=== PATIENT | female | born 1985 | race Caucasian/White ===

== ENCOUNTER 2018-07-12 13:39 | Inpatient (IN) ==
[2018-07-12 14:35] LABS: Basophils # 0.1 K/mcL (0.0-0.2); Basophils % 1.1 %; Eosinophils % 0.2 %; Hematocrit 47.2 % (35.3-44.9); Hemoglobin 15.4 g/dL (11.5-15.4); Immature Granulocytes % 1.7 % (0-4); Lymphocytes # 2.5 K/mcL (0.6-4.6); Lymphocytes % 38.7 %; Mean Corpuscular HGB Conc 32.6 g/dL (31.6-35.5); Mean Corpuscular Volume 85.8 fL (83.0-100.0); Mean Platelet Volume 10.9 fL (9.4-12.4); Monocytes # 0.5 K/mcL (0.0-1.3); Monocytes % 8.2 %; Platelet Count 260 K/mcL (140-400); Red Cell Distribution Width 16.1 % (11.5-14.5); Segmented Neutrophils % 50.1 %
[2018-07-12 14:41] LABS: INR 1.1; Neutrophils # 3.3 K/mcL (1.6-8.9); Prothrombin Time 12.9 Seconds (9.4-12.1)
[2018-07-12] MEDS ORDERED: 0.9 % Sodium Chloride 1,000 ML IVC ONE (14:56)
[2018-07-12 14:57] LABS: Troponin I < 0.03 ng/mL (< 0.04)
[2018-07-12 15:04] LABS: Alanine Aminotransferase > 500 Units/L (7-52); Albumin 3.2 g/dL (3.5-5.7); Albumin/Globulin Ratio 0.9 (1.1-2.2); Alkaline Phosphatase 225 Units/L (34-104); Aspartate Amino Transferase 634 Units/L (13-39); BUN/Creatinine Ratio 11 (6-26); Bilirubin,Direct 3.7 mg/dL (0.0-0.2); Bilirubin,Indirect 1.6 mg/dL (0.0-1.2); Bilirubin,Total 5.3 mg/dL (0.3-1.0); Blood Urea Nitrogen 7 mg/dL (6-20); Calcium 8.6 mg/dL (8.6-10.3); Carbon Dioxide 28 mEq/L (23-29); Chloride 99 mEq/L (98-107); Globulin 3.5 g/dL (2.4-3.5); Glucose 124 mg/dL (70-105); Lipase 32 Units/L (11-82); Osmolality,Calculated 275 (280-300); Potassium 3.3 mEq/L (3.5-5.1); Sodium 133 mEq/L (136-145); Total Protein 6.7 g/dL (6.4-8.9); eGFR For Non-African Americans > 60 (> 60)
[2018-07-12 15:05] LABS: Bilirubin,Urine Large (Negative); Blood,Urine Negative (Negative); Clarity,Urine Cloudy (Clear); Color,Urine Orange (Yellow); Glucose,Urine (UA) Normal (Normal); Ketones,Urine Trace mg/dL (Negative); Leukocyte Esterase,Urine Trace (Negative); Nitrite,Urine Negative (Negative); PH,Urine 5.5 pH Units (5.0-8.0); Protein,Urine Negative (Neg-Trace); Specific Gravity,Urine 1.024 (1.010-1.025); Urobilinogen,Urine Normal (Normal)
[2018-07-12 15:07] LABS: Bacteria,Urine None Seen per hpf (None-Few); Hyaline Casts,Urine None Seen per lpf (None-Few); RBC,Urine 0-3 per hpf (0-3); Squamous Epithelial Cell,Urine Many per lpf (None-Few); WBC,Urine 0-3 per hpf (0-3)
[2018-07-12 15:18] LABS: Platelet Estimate Normal (Normal); Reactive Lymphocytes Present (Not Present)
[2018-07-12 15:19] LABS: Acetaminophen < 10 mcg/mL (10-20)
[2018-07-12 15:26] LABS: Yeast,Urine Few per hpf (None Seen)
--- NOTE | 2018-07-12 17:01 | Emergency Department Note ---
Disposition Clinical Impression: Hepatitis Disposition: Admitted As Inpatient Condition: Good Abdominal Pain HPI - General Chief Complaint: ED Abdominal Pain Stated Complaint: "abd pain" Time Seen by Provider: 07/12/18 13:55 Source: patient Mode of arrival: ambulatory Limitations: no limitations Nursing Notes Reviewed: Yes Vital Signs Reviewed: Yes - History of Present Illness HPI Narrative: Patient presents to the emergency department today for evaluation of right upper quadrant pain and associated jaundice. Patient's symptoms have been going on for proximally 5 days. Patient states increasing amounts of pain as well as associated feeling of the eyes. 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 Mother is at bedside and states that she was last seen approximately a week ago without complaints of abdominal pain or jaundice. The patient states that she does have a history of IV drug use. She does have known contacts that are hepatitis positive. Patient has had mild nausea without significant decrease in appetite. No vomiting. Decreased and dark urination. Pain Scale: 3 - Related Data Home Medications Medication Instructions Recorded Confirmed No Known Home Drugs 07/12/18 07/12/18 Allergies Allergy/AdvReac Type Severity Reaction Status Date / Time No Known Allergies Allergy Verified 07/12/18 15:50 Review of Systems: CONSTITUTIONAL: No weight loss, fever, chills, weakness or fatigue. HEENT: Eyes: No visual changes. Ears, Nose, Throat: No hearing loss, difficulty talking or unable to swallow. SKIN: Jaundice CARDIOVASCULAR: No chest pain, chest pressure or chest discomfort. No palpitations or edema. RESPIRATORY: No shortness of breath, cough or sputum. GASTROINTESTINAL: Abdominal pain with nausea. No vomiting. GENITOURINARY: No burning on urination or hematuria. NEUROLOGICAL: No headache, dizziness, syncope, paralysis, ataxia, numbness or tingling in the extremities. No change in bowel or bladder control. MUSCULOSKELETAL: No muscle pain, back pain, joint pain or stiffness. All systems ED: reviewed and negative except as stated. Review of Systems: As Per HPI Abdominal Pain PMH - Past Medical History Medical history: Reports: no medical history Female Surgical History: Reports: other Psychiatric history: Reports: no psych history - Social History Smoking status: Former smoker Alcohol use: Reports: none Drug use: Reports: methamphetamine, IV Drug Use Physical Exam General: Well appearing, nontoxic, no acute distress Head: Normocephalic Atraumatic Eyes: Scleral jaundice, PERRL, EOMI ENT: Airway patent, no stridor Neck: supple Chest: Lungs clear to auscultation bilateral Cardiac: Regular rhythm Abdomen: soft, moderate right upper quadrant tenderness without Torres sign, nondistended; no guarding, rebound, or tenderness to percussion Musculoskeletal: Calves symmetric, nontender Skin: No rash, normal skin tone Neuro: Alert and Oriented to person, place, and time; No focal deficit - General Limitations: no limitations General appearance: alert, in no apparent distress Course - Reevaluation(s) Reevaluation #1: Elevated liver enzymes as well as bilirubin. Ultrasound shows gallbladder wall thickening with gallstone. Patient has nausea but no vomiting. Torres sign negative. Inflammation likely related to hepatitis. Patient continued to watch. IV drug use with known contacts who have hepatitis. The patient Tylenol level is negative. - Consultations Consultation #1: Discussed with hospitalist. Patient accepted for admission. Vital Signs Temperature 98.0 F 07/12/18 13:46 Pulse Rate 113 07/12/18 13:46 Respiratory Rate 18 07/12/18 13:46 Blood Pressure 121/77 07/12/18 13:46 O2 Sat by Pulse Oximetry 97 07/12/18 13:46 Temperature 98.1 F 07/13/18 21:08 Pulse Rate 97 07/13/18 21:08 Respiratory Rate 16 07/13/18 21:08 Blood Pressure 108/77 07/13/18 21:08 O2 Sat by Pulse Oximetry 97 07/13/18 21:08 Oxygen Delivery Oxygen Delivery Room Air Abdominal Pain - Lab Data Result diagrams: 07/12/18 13:54 07/13/18 04:02 Lab Results 07/12/18 07/12/18 07/12/18 Range/Units 13:54 13:54 13:54 WBC 6.5 (4.3-11.1) K/mcL RBC 5.50 H (3.82-4.97) M/mcL Hgb 15.4 (11.5-15.4) g/dL Hct 47.2 H (35.3-44.9) % MCV 85.8 (83.0-100.0) fL MCH 28.0 (28.0-33.3) pg MCHC 32.6 (31.6-35.5) g/dL RDW 16.1 H (11.5-14.5) % Plt Count 260 (140-400) K/mcL MPV 10.9 (9.4-12.4) fL Immature Gran % 1.7 (0-4) % Seg Neutrophils % 50.1 % Lymphocytes % 38.7 % Monocytes % 8.2 % Eosinophils % 0.2 % Basophils % 1.1 % Neutrophils # 3.3 (1.6-8.9) K/mcL Lymphocytes # 2.5 (0.6-4.6) K/mcL Monocytes # 0.5 (0.0-1.3) K/mcL Eosinophils # 0.0 (0.0-0.6) K/mcL Basophils # 0.1 (0.0-0.2) K/mcL Reactive Lymphocytes Present A (Not Present) Platelet Estimate Normal (Normal) PT 12.9 H (9.4-12.1) Seconds INR 1.1 Sodium 133 L (136-145) mEq/L Potassium 3.3 L (3.5-5.1) mEq/L Chloride 99 (98-107) mEq/L Carbon Dioxide 28 (23-29) mEq/L BUN 7 (6-20) mg/dL Creatinine 0.62 (0.60-1.20) mg/dL Est GFR ( Amer) > 60 (> 60) Est GFR (Non-Af Amer) > 60 (> 60) BUN/Creatinine Ratio 11 (6-26) Glucose 124 H (70-105) mg/dL Calculated Osmolality 275 L (280-300) Lactic Acid (0.5-2.2) mmol/L Calcium 8.6 (8.6-10.3) mg/dL Total Bilirubin 5.3 H (0.3-1.0) mg/dL Direct Bilirubin 3.7 H (0.0-0.2) mg/dL Indirect Bilirubin 1.6 H (0.0-1.2) mg/dL AST 634 H (13-39) Units/L ALT > 500 H (7-52) Units/L Alkaline Phosphatase 225 H (34-104) Units/L Troponin I < 0.03 (< 0.04) ng/mL Serum Total Protein 6.7 (6.4-8.9) g/dL Albumin 3.2 L (3.5-5.7) g/dL Globulin 3.5 (2.4-3.5) g/dL Albumin/Globulin Ratio 0.9 L (1.1-2.2) Lipase 32 (11-82) Units/L Urine Color (Yellow) Urine Clarity (Clear) Urine pH (5.0-8.0) pH Units Ur Specific [place] (1.010-1.025) Urine Protein (Neg-Trace) mg/dL Urine Glucose (UA) (Normal) mg/dL Urine Ketones (Negative) mg/dL Urine Blood (Negative) Urine Nitrite (Negative) Urine Bilirubin (Negative) Urine Urobilinogen (Normal) mg/dL Ur Leukocyte Esterase (Negative) Urine Microscopic RBC (0-3) per hpf Urine Microscopic WBC (0-3) per hpf Ur Squamous Epith Cells (None-Few) per lpf Urine Bacteria (None-Few) per hpf Hyaline Casts (None-Few) per lpf Urine Yeast (None Seen) per hpf Ur Culture Indicated? (NO) Acetaminophen < 10 L (10-20) mcg/mL Hepatitis A IgM Ab (Nonreactive) Hep Bs Antigen (Nonreactive) Hep B Core IgM Ab (Nonreactive) Hepatitis C Ab Screen (Nonreactive) 07/12/18 07/12/18 07/12/18 Range/Units 13:54 14:05 14:55 WBC (4.3-11.1) K/mcL RBC (3.82-4.97) M/mcL Hgb (11.5-15.4) g/dL Hct (35.3-44.9) % MCV (83.0-100.0) fL MCH (28.0-33.3) pg MCHC (31.6-35.5) g/dL RDW (11.5-14.5) % Plt Count (140-400) K/mcL MPV (9.4-12.4) fL Immature Gran % (0-4) % Seg Neutrophils % % Lymphocytes % % Monocytes % % Eosinophils % % Basophils % % Neutrophils # (1.6-8.9) K/mcL Lymphocytes # (0.6-4.6) K/mcL Monocytes # (0.0-1.3) K/mcL Eosinophils # (0.0-0.6) K/mcL Basophils # (0.0-0.2) K/mcL Reactive Lymphocytes (Not Present) Platelet Estimate (Normal) PT (9.4-12.1) Seconds INR Sodium (136-145) mEq/L Potassium (3.5-5.1) mEq/L Chloride (98-107) mEq/L Carbon Dioxide (23-29) mEq/L BUN (6-20) mg/dL Creatinine (0.60-1.20) mg/dL Est GFR ( Amer) (> 60) Est GFR (Non-Af Amer) (> 60) BUN/Creatinine Ratio (6-26) Glucose (70-105) mg/dL Calculated Osmolality (280-300) Lactic Acid 1.7 (0.5-2.2) mmol/L Calcium (8.6-10.3) mg/dL Total Bilirubin (0.3-1.0) mg/dL Direct Bilirubin (0.0-0.2) mg/dL Indirect Bilirubin (0.0-1.2) mg/dL AST (13-39) Units/L ALT (7-52) Units/L Alkaline Phosphatase (34-104) Units/L Troponin I (< 0.04) ng/mL Serum Total Protein (6.4-8.9) g/dL Albumin (3.5-5.7) g/dL Globulin (2.4-3.5) g/dL Albumin/Globulin Ratio (1.1-2.2) Lipase (11-82) Units/L Urine Color [place] A (Yellow) Urine Clarity Cloudy A (Clear) Urine pH 5.5 (5.0-8.0) pH Units Ur Specific [place] 1.024 (1.010-1.025) Urine Protein Negative (Neg-Trace) mg/dL Urine Glucose (UA) Normal (Normal) mg/dL Urine Ketones Trace H (Negative) mg/dL Urine Blood Negative (Negative) Urine Nitrite Negative (Negative) Urine Bilirubin Large H (Negative) Urine Urobilinogen Normal (Normal) mg/dL Ur Leukocyte Esterase Trace H (Negative) Urine Microscopic RBC 0-3 (0-3) per hpf Urine Microscopic WBC 0-3 (0-3) per hpf Ur Squamous Epith Cells Many H (None-Few) per lpf Urine Bacteria None Seen (None-Few) per hpf Hyaline Casts None Seen (None-Few) per lpf Urine Yeast Few H (None Seen) per hpf Ur Culture Indicated? NO. A (NO) Acetaminophen (10-20) mcg/mL Hepatitis A IgM Ab Reactive H (Nonreactive) Hep Bs Antigen Nonreactive (Nonreactive) Hep B Core IgM Ab Grayzone H (Nonreactive) Hepatitis C Ab Screen Reactive H (Nonreactive)
[2018-07-12 17:52] LABS: Hepatitis B Surface Antigen Nonreactive (Nonreactive)
[2018-07-12 18:02] LABS: Hepatitis A Antibody IgM Reactive (Nonreactive)
[2018-07-12 18:03] LABS: Hepatitis B Core IgM Grayzone (Nonreactive); Hepatitis C Virus Antibody Reactive (Nonreactive)
--- NOTE | 2018-07-12 19:31 | Internal Med History&Physical ---
Date of Encounter: 07/12/18 Time of Encounter: 19:19 Internal Medicine - H&P: HPI Chief complaint: abdominal pain and jaundice Admitted From: Home Plans for Post Hospital Care: Home History of present illness: Ms. Choudhury is a 33 year old female with history IV drug, reports smoker <1PPD since 17 years old, substance abuse started in high school with percocets and oxycotin (was on suboxone but states she is no longer on this), reports using meth a month ago. Pt presents with abdominal pain and jaundice. Pt states she initially developd symptoms 07/09/2018. States at she had temp 102 at home and was having some epigastric pain. States her pain felt more like acid reflux and had some back pain as well between her scapula. 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 She states she did vomit. States she does not recall when she last had a BM but her mother told her it was about 9 days ago. States she came in beacuse her mother noted her skin was turning yellow. Reports exposure to a friend that was recently diagnosed with Hep A and her partner of 14 years ( father of her children) has hx of Hep C. Also states she has been with about 10 partners since 17 years of age but denies any knowledge or Hx of STD. In ED BP 98/67 in ED temp 98.0 WBC 6.5, hgb 15.4, hct 47.2, plt 260. Lipase 32 PT 12.9, INR 1.1 Na 133, K 3.3, T bili 5.3, AST 634, ALT > 500, Alk phos 225. Hep A reactive, Hep C reactive, Hep B grayzone. Urine dark with large bilirubin Abdominal US showed US/US abdomen limited IMPRESSION: 1. Cholelithiasis with gallbladder wall thickening is equivocal for acute cholecystitis. No CBD dilatation. 2. Enlarged peripancreatic lymph node measures 2.2 x 1 cm may be reactive. Nonemergent follow-up CT recommended to ensure resolution. Past Med Surg Social Fam HX - Past Medical History Medical history: no medical history Psychiatric history: no psych history - Past Surgical History Additional surgical history: D&C - Social History Smoking Status: Current every day smoker Packs per day: 0.5 Smokeless Tobacco Status: No Alcohol use: none Drug use: methamphetamine, IV Drug Use - Family History Father Living Status: Still Living Hx Family Cardiac Disorders: Yes Hx Family Respiratory Disorders: No Hx Family Cancer: No Hx Family GI Disorders: No Hx Family Medical Disorders: Yes Internal Medicine - H&P: Meds No Known Home Drugs 07/12/18 [History] 3 Allergy/AdvReac Type Severity Reaction Status Date / Time No Known Allergies Allergy Verified 07/12/18 15:50 All Systems PM: A 10-system review of systems was performed and is negative for pertinent findings except as documented above in the HPI. - Constitutional Vitals: Temp Pulse Resp BP Pulse Ox 98.4 F 88 16 100/57 97 07/12/18 19:08 07/12/18 19:08 07/12/18 19:08 07/12/18 19:08 07/12/18 19:08 General appearance: Present: A&O X 3, no acute distress Exam: . - Head Head exam: Present: atraumatic, normocephalic - Eye Eye exam: Present: PERRL, scleral icterus, conjuntiva pink, sclera anicteric Pupils: Present: PERRL - Neck Neck exam general surgery: Present: supple, trachea midline. Absent: lymphadenopathy - Respiratory Respiratory exam: Present: CTAB. Absent: accessory muscle use, rales, rhonchi, wheezes - Cardiovascular Cardiovascular exam: Present: RRR, +S1, +S2. Absent: diastolic murmur, gallop, rubs, systolic murmur - GI/Abdominal GI/Abdominal exam: Present: normal bowel sounds, soft, tenderness, no peritoneal signs. Absent: distended Additional comments: tender RUQ with palpation - Extremities Exam Extremities exam: Present: warm, radial pulses palpable and symmetrical. Absent : calf tenderness, cyanotic, pedal edema - Neurological Exam Neurological exam: Present: CN II-XII intact, oriented X3, no focal deficits. Absent: pronater drift, facial droop, speech deficit - Skin Skin exam: Present: dry, intact Additional comments: jaundice Internal Med - H&P Results - Labs CBC & Chem 7: 07/12/18 13:54 07/12/18 13:54 - Assessment and plan (1) Cholelithiasis and cholecystitis without obstruction Current Visit: Yes Status: Acute Assessment and plan: Pt reports epigastric pain and vomiting. She states her temp at home was 102 but so far has been afebrile. Discussed with surgery and will see in consult. Clear liquid for now but NPO after MN. Will give IVF and prn pain control with tramadol. Qualifiers: Qualified Code(s): K80.10 - Calculus of gallbladder with chronic cholecystitis without obstruction (2) Acute hepatitis A Current Visit: Yes Status: Acute Assessment and plan: Recent sick contact with friend that has Hep A. Condition self limiting so will give supportive care with IVF pain control. (3) Hepatitis C Current Visit: Yes Status: Acute Assessment and plan: New diagnosis to pt, pt was unaware of this. Partner has hx of Hep C and she does admit to hx of IV drug use. Will check other STD work up. Qualifiers: Qualified Code(s): B19.20 - Unspecified viral hepatitis C without hepatic coma (4) Hyperbilirubinemia Current Visit: Yes Status: Acute Assessment and plan: Will monitor CMP daily. Will consult GI to see. (5) Elevated transaminase level Current Visit: Yes Status: Acute (6) IV drug abuse Current Visit: Yes Status: Acute Assessment and plan: Cessation strongly advised. (7) Substance abuse Current Visit: Yes Status: Acute Assessment and plan: Cessation strongly advised (8) Hyponatremia Current Visit: Yes Status: Acute Assessment and plan: Will give IVF and recheck levels in am (9) Hypokalemia Current Visit: Yes Status: Acute Assessment and plan: Will give IVF and recheck levels in am. - Time Spent With Patient Total time spent is greater than 50% in coordination of care (as documented) at patient's floor/unit and/or counseling patient: 25 - 35 minutes
[2018-07-12] MEDS ORDERED: Acetaminophen 325 MG TABLET PO PRN (19:38)
[2018-07-12] MEDS ORDERED: Naloxone 0.4 MG/ML INJ IVP PRN (19:38)
[2018-07-12] MEDS ORDERED: traMADol 50 MG TABLET PO PRN (19:43)
[2018-07-12] MEDS: 0.9 % Sodium Chloride 1,000 ML IVC SCH (20:17)
--- NOTE | 2018-07-12 21:16 | General Surgery Consult Note ---
Date of Encounter: 07/12/18 Time of Encounter: 17:30 Assessment and Plan (1) Hyperbilirubinemia Current Visit: Yes Status: Acute 33F with hyperbilirubinemia and positive hepatitis panel. likely findings are related to acute hepatitis; supportive care pain control GI consult no acute surgery; patient can follow up in two weeks in my clinic if further concern about gallbladder general surgery will sign off; please call with any new questions or concerns History of Present Illness Consult date: 07/12/18 Reason for consult: gallstones History of present illness: 33F h/o of IVDA who presents with 2-3 days of worsening abdominal pain, fatigue , and jaundice. The patient states the pain is localized to the RUQ and midepigastric region No associated nausea or vomiting. In addition she also reports fever of up to 102. After about 2-3 days her mother brought her to the hospital. Her labs were consistent with normal WBC, but hyperbilirubinemia and elevation of AST/ALT. She did have gallstones on US, but her most recent labs demonstrated reactivity in her hepatitis panel. Past Med Surg Social Fam HX - Past Medical History Medical history: no medical history Psychiatric history: no psych history - Past Surgical History Additional surgical history: D&C - Social History Smoking Status: Current every day smoker Packs per day: 0.5 Smokeless Tobacco Status: No Alcohol use: none Drug use: methamphetamine, IV Drug Use - Family History Father Living Status: Still Living Hx Family Cardiac Disorders: Yes Hx Family Respiratory Disorders: No Hx Family Cancer: No Hx Family GI Disorders: No Hx Family Medical Disorders: Yes Medications and Allergies No Known Home Drugs 07/12/18 [History] 3 Allergy/AdvReac Type Severity Reaction Status Date / Time No Known Allergies Allergy Verified 07/12/18 15:50 Review of Systems All systems PM: 12 point ROS negative besides HPI findings. General Surgery Exam Initial Vital Signs Temp Pulse Resp BP Pulse Ox 98.0 F 113 18 121/77 97 07/12/18 13:46 07/12/18 13:46 07/12/18 13:46 07/12/18 13:46 07/12/18 13:46 - General physical appearance no distress - Eyes other (no scleral icterus) - Neck no lymphadectomy - Respiratory normal expansion, normal respiratory effort - Cardiovascular Cardiovascular exam: Present: RRR - Abdomen Abdomen general surgery: Present: soft, tender (mildly tender; (-)gleason's sign) - Integumentary Integumentary general surgery: Present: warm and dry, no abnormal pigmentation ( jaundice) - Neurologic Present: CN 2-12 grossly intact - Musculoskeletal Present: normal posture - Psychiatric Psychiatric general surgery: Present: A&Ox3 Exam Initial Vital Signs Temp Pulse Resp BP Pulse Ox 98.0 F 113 18 121/77 97 07/12/18 13:46 07/12/18 13:46 07/12/18 13:46 07/12/18 13:46 07/12/18 13:46 Results - Labs 07/12/18 13:54 07/12/18 13:54 Abnormal lab results RBC 5.50 M/mcL (3.82-4.97) H 07/12/18 13:54 Hct 47.2 % (35.3-44.9) H 07/12/18 13:54 RDW 16.1 % (11.5-14.5) H 07/12/18 13:54 Reactive Lymphocytes Present (Not Present) A 07/12/18 13:54 PT 12.9 Seconds (9.4-12.1) H 07/12/18 13:54 Sodium 133 mEq/L (136-145) L 07/12/18 13:54 Potassium 3.3 mEq/L (3.5-5.1) L 07/12/18 13:54 Glucose 124 mg/dL (70-105) H 07/12/18 13:54 Calculated Osmolality 275 (280-300) L 07/12/18 13:54 Total Bilirubin 5.3 mg/dL (0.3-1.0) H 07/12/18 13:54 Direct Bilirubin 3.7 mg/dL (0.0-0.2) H 07/12/18 13:54 Indirect Bilirubin 1.6 mg/dL (0.0-1.2) H 07/12/18 13:54 AST 634 Units/L (13-39) H 07/12/18 13:54 ALT > 500 Units/L (7-52) H 07/12/18 13:54 Alkaline Phosphatase 225 Units/L (34-104) H 07/12/18 13:54 Albumin 3.2 g/dL (3.5-5.7) L 07/12/18 13:54 Albumin/Globulin Ratio 0.9 (1.1-2.2) L 07/12/18 13:54 Urine Color [place] (Yellow) A 07/12/18 14:55 Urine Clarity Cloudy (Clear) A 07/12/18 14:55 Urine Ketones Trace mg/dL (Negative) H 07/12/18 14:55 Urine Bilirubin Large (Negative) H 07/12/18 14:55 Ur Leukocyte Esterase Trace (Negative) H 07/12/18 14:55 Ur Squamous Epith Cells Many per lpf (None-Few) H 07/12/18 14:55 Urine Yeast Few per hpf (None Seen) H 07/12/18 14:55 Ur Culture Indicated? NO. (NO) A 07/12/18 14:55 Acetaminophen < 10 mcg/mL (10-20) L 07/12/18 13:54 Hepatitis A IgM Ab Reactive (Nonreactive) H 07/12/18 13:54 Hep B Core IgM Ab Grayzone (Nonreactive) H 07/12/18 13:54 Hepatitis C Ab Screen Reactive (Nonreactive) H 07/12/18 13:54 All other labs normal. - Imaging US - abdomen: report reviewed, image reviewed Consult Discharge Plan - Plan Referrals: NONE,PCP [Primary Care Provider] -
[2018-07-13 05:17] LABS: Alanine Aminotransferase > 500 Units/L (7-52); Albumin 2.8 g/dL (3.5-5.7); Alkaline Phosphatase 190 Units/L (34-104); Aspartate Amino Transferase 376 Units/L (13-39); BUN/Creatinine Ratio 8 (6-26); Bilirubin,Total 5.5 mg/dL (0.3-1.0); Blood Urea Nitrogen 5 mg/dL (6-20); Calcium 8.3 mg/dL (8.6-10.3); Carbon Dioxide 27 mEq/L (23-29); Chloride 104 mEq/L (98-107); Cholesterol 163 mg/dL (< 200); Globulin 2.9 g/dL (2.4-3.5); Glucose 100 mg/dL (70-105); HDL Cholesterol < 3 mg/dL (40-59); Osmolality,Calculated 279 (280-300); Sodium 136 mEq/L (136-145); Total Protein 5.7 g/dL (6.4-8.9); Triglycerides 297 mg/dL (< 150); eGFR For Non-African Americans > 60 (> 60)
[2018-07-13] MEDS: 0.9 % Sodium Chloride 1,000 ML IVC SCH (06:59)
[2018-07-13] MEDS: Nicotine 14 MG PATCH.TD24 TD SCH (11:08)
--- NOTE | 2018-07-13 11:20 | Gastroenterology Consult Note ---
<Murphy Smart Lai - Last Filed: 07/13/18 11:17> Date of Encounter: 07/13/18 Time of Encounter: 10:30 - Assessment and plan (1) Acute hepatitis A Status: Acute Assessment and plan: Continue to monitor hepatic panel daily. - Handwashing (including after using the bathroom, changing diapers, and before preparing or eating foods). - Heating foods appropriately (the virus can be inactivated by heating to >185F for one minute). Cooked foods can transmit HAV if the temperature during food preparation is inadequate to kill the virus or if food is contaminated after cooking. - Chlorine, iodine, and disinfecting solutions (household bleach 1:100 dilution) are effective for inactivation of HAV. (2) Hepatitis B Status: Acute Assessment and plan: Hepatitis B IgM in grayzone, retest in 1 week. Qualifiers: Viral hepatitis chronicity: unspecified Hepatic coma status: without hepatic coma Hepatitis delta agent presence: without delta-agent Qualified Code(s): B19.10 - Unspecified viral hepatitis B without hepatic coma (3) Hepatitis C antibody positive in blood Status: Acute Assessment and plan: Hepatitis C screening positive. Check Hep C quant and genotype to determine if she has active infection. Complete liver work up. Instructed patient to not share any thing that could potentially cause bleeding such as razors, nail clippers, hair clippers. Instructed patient that if they were to cut themselves they need to clean up the blood or if someone else cleans up they need to wear gloves. Instructed patient they need to use protection while having sex. (4) IV drug abuse Status: Acute Assessment and plan: Patient must be drug and alcohol free in order to qualify for treatment for hepa titis C. - Time Spent With Patient Total time spent is greater than 50% in coordination of care (as documented) at patient's floor/unit and/or counseling patient: GI History of Present Illness - Data of Consult Patient: new to practice Consult date: 07/13/18 Requesting Physician: Marco Antonio Calderon MD - Consult Narrative Reason for consult: Hepatitis History of present illness: Ms. Choudhury is a 33 year old female with PMHx of IV drug use (shared needles), intranasal drug use (shared straws), who presented to the hospital with 2-3 days of epigastric abdominal pain and jaundice. She states symptoms started on 07/09/18. She reports a fever at home of 102. Reports exposure to a friend that was recently diagnosed with Hep A and her partner of 14 years (father of her children) has hx of Hep C. Also states she has been with about 10 partners since 17 years of age but denies any knowledge or Hx of STD. RUQ US showed cholelithiasis with cholecystitis, no CBD dilation. On admission, TB 5.3, AST 634, ALT >500, alk phos 225, hepatitis A positive, hep C screening positive, hep B IgM grayzone (need retest in 1 week), HIV antigen/antibody positive. Procedures: None NSAIDs: None Anticoagulation: None Past Med Surg Social Fam HX - Past Medical History Medical history: no medical history Psychiatric history: no psych history - Past Surgical History Additional surgical history: D&C - Social History Smoking Status: Current every day smoker Packs per day: 0.5 Smokeless Tobacco Status: No Alcohol use: none Drug use: methamphetamine, IV Drug Use - Family History Father Living Status: Still Living Hx Family Cardiac Disorders: Yes Hx Family Respiratory Disorders: No Hx Family Cancer: No Hx Family GI Disorders: No Hx Family Medical Disorders: Yes - Gastrointestinal Gastrointestinal: Present: as per HPI - Constitutional Constitutional: as per HPI - EENT Eyes: as per HPI Ears: Present: as per HPI Nose, mouth and throat: Present: as per HPI - Cardiovascular Cardiovascular ROS: Present: as per HPI - Respiratory Respiratory IM: Present: as per HPI - Genitourinary Genitourinary: Absent: change in color, Urinary frequency - Neurological ROS Neurological GI: Present: as per HPI - Hematologic/Lymphatic Hematologic/Lymphatic pediatric: Present: as per HPI - Musculoskeletal Musculoskeletal ROS GI: Present: as per HPI - Integumentary Integumentary GI: Present: as per HPI - Psychiatric ROS Psychiatric GI: Present: as per HPI - Endocrine Endocrine IM: Present: as per HPI - Constitutional Vitals: Temp Pulse Resp BP Pulse Ox 98.5 F 99 17 102/64 97 07/13/18 07:08 07/13/18 07:08 07/13/18 07:08 07/13/18 07:08 07/13/18 07:08 General appearance: Present: cooperative, A&O X 3, no acute distress, answers questions appropriately - Head Head exam: Present: atraumatic, normocephalic - Eye Eye exam: Present: normal appearance, sclera anicteric - ENT ENT exam: Present: mucous membranes dry - Neck Neck exam general surgery: Present: normal inspection, trachea midline - Respiratory Respiratory exam: Present: CTAB. Absent: rales, rhonchi - Cardiovascular Cardiovascular exam: Present: RRR, +S1, +S2 - GI/Abdominal GI/Abdominal exam: Present: soft, tenderness (ruq), no peritoneal signs. Absent: distended, firm, guarding - Rectal Rectal exam: Present: deferred - Extremities Exam Extremities exam: Present: warm - Neurological Exam Neurological exam: Present: no focal deficits - Psychiatric Psychiatric exam: Present: normal affect, normal mood - Skin Skin exam: Present: dry, intact, normal color, warm Results - Labs CBC & Chem 7: 07/12/18 13:54 07/13/18 04:02 Labs: Last Result Calcium 8.3 mg/dL (8.6-10.3) L 07/13/18 04:02 Troponin I < 0.03 ng/mL (< 0.04) 07/12/18 13:54 Triglycerides 297 mg/dL (< 150) H 07/13/18 04:02 Entire Visit Hgb 15.4 g/dL (11.5-15.4) 07/12/18 13:54 Hct 47.2 % (35.3-44.9) H 07/12/18 13:54 PT 12.9 Seconds (9.4-12.1) H 07/12/18 13:54 Total Bilirubin 5.5 mg/dL (0.3-1.0) H 07/13/18 04:02 AST 376 Units/L (13-39) H 07/13/18 04:02 ALT > 500 Units/L (7-52) H 07/13/18 04:02 Ammonia 48 mcmol/L (16-53) 07/12/18 20:16 Lipase 32 Units/L (11-82) 07/12/18 13:54 Acetaminophen < 10 mcg/mL (10-20) L 07/12/18 13:54 - ABG ABG results: PT/INR, D-dimer PT 12.9 Seconds (9.4-12.1) H 07/12/18 13:54 Consult Discharge Plan - Plan Instructions: Ciprofloxacin (By mouth), Metronidazole (By mouth), Nicotine (Absorbed through the skin), Viral Hepatitis A (DC), Viral Hepatitis C (DC), Hum an Immunodeficiency Virus Transmission (GEN) Additional Instructions: Please make appointments with GI/ID/Surgery follow up in one week. Please f/u with resident clinic in one week. Referrals: Sandeep Guzman MD [Non-Partnered Physician] - 07/28/18 2:10 pm Jorge Regalado DO [Resident] - 07/22/18 3:30 pm Murphy Smart, INSTRUCTOR PSYCHIATRIC AIDE [Advanced Practice Nurse] - (office will call patient at home with appointment date and time) Getachew العراقي MD [Partnered Physician] - (sent a web request the office will call patient at home with appointment date and time) Prescriptions: Ciprofloxacin HCl [Cipro] 250 mg PO BID 7 Days #14 tab RX: metroNIDAZOLE [Flagyl] 500 mg PO TID 7 Days #21 tablet RX: Nicotine Patch [Nicoderm] 14 mg TD DAILY 14 Days #14 patch.[email or web address] <Nilesh Chen - Last Filed: 07/25/18 22:13> - Time Spent With Patient Total time spent is greater than 50% in coordination of care (as documented) at patient's floor/unit and/or counseling patient: GI History of Present Illness - Data of Consult Requesting Physician: Marco Antonio Calderon MD - Consult Narrative History of present illness: Ms. Choudhury is a 33 year old female - Constitutional Vitals: Temp Pulse Resp BP Pulse Ox 98.3 F 85 16 103/66 97 07/15/18 07:40 07/15/18 07:40 07/15/18 07:40 07/15/18 07:40 07/15/18 07:40 Results - Labs CBC & Chem 7: 07/15/18 03:16 07/15/18 03:16 Labs: Last Result Calcium 8.7 mg/dL (8.6-10.3) 07/15/18 03:16 Ferritin 233 ng/mL (10-120) H 07/13/18 12:18 Troponin I < 0.03 ng/mL (< 0.04) 07/12/18 13:54 Triglycerides 297 mg/dL (< 150) H 07/13/18 04:02 Hepatitis C Genotype TNP 07/13/18 12:18 Entire Visit Hgb 13.2 g/dL (11.5-15.4) 07/15/18 03:16 Hct 39.4 % (35.3-44.9) 07/15/18 03:16 PT 13.6 Seconds (9.4-12.1) H 07/15/18 03:16 Ferritin 233 ng/mL (10-120) H 07/13/18 12:18 Total Bilirubin 4.4 mg/dL (0.3-1.0) H 07/15/18 03:16 AST 154 Units/L (13-39) H 07/15/18 03:16 ALT 460 Units/L (7-52) H 07/15/18 03:16 Ammonia 48 mcmol/L (16-53) 07/12/18 20:16 Wpged-9-Jyakvfatcyj 140 mg/dL (90-200) 07/13/18 12:18 Ceruloplasmin 23 mg/dL (17-54) 07/13/18 12:18 Lipase 32 Units/L (11-82) 07/12/18 13:54 Acetaminophen < 10 mcg/mL (10-20) L 07/12/18 13:54 F-Actin IgG Antibody 8 Units (0-19) 07/13/18 12:18 - ABG ABG results: PT/INR, D-dimer PT 13.6 Seconds (9.4-12.1) H 07/15/18 03:16 - Attending Attestation Agree supportive care for now. Follow up in clinic. I examined this patient and my medical decision-making was reviewed with the Resident Physician. I agree with the documented findings, disposition and treatment plan as described except to the extent set forth below.
--- NOTE | 2018-07-13 13:19 | Internal Med Progress Note ---
Hospitalist Progress Note - Encounter Date of Encounter: 07/13/18 Time of Encounter: 09:00 - Subjective Interval History: Pt still has RUQ pain. Less nausea. Improved appetite. Pt's mom is at bedside. With permission from pt, medical information shared regarding her lab result ( Hep C and HIV positive). - Exam Vitals: Temp Pulse Resp BP Pulse Ox 98.5 F 84 17 110/73 96 07/13/18 07:08 07/13/18 11:17 07/13/18 11:17 07/13/18 11:17 07/13/18 11:17 Exam: AAO x 3, in NAD HEENT: NC/AT, PERRL Neck: Supple, no LAD Lungs: CTA B/L Heart: S1S2, RRR Abd: Soft, RUQ tenderness, BS normal Ext: No edema Neuro: No focal deficit. . - Assessment and Plan (1) Acute hepatitis A Current Visit: Yes Status: Acute Assessment and Plan: Appreciate GI consult. - Cont supportive treatment. (2) Cholelithiasis and cholecystitis without obstruction Current Visit: Yes Status: Acute Assessment and Plan: Appreciate surgical consult. Abd pain is possibly due to acute hep A. Will closely monitor pt. F/U with surgery as outpatient for gall stone. (3) Hepatitis C Current Visit: Yes Status: Acute Assessment and Plan: New diagnosis to pt, pt was unaware of this. Partner has hx of Hep C and she does admit to hx of IV drug use. Will check other STD work up. (4) Hyperbilirubinemia Current Visit: Yes Status: Acute Assessment and Plan: Likely due to acute Hep A. Will monitor CMP daily. Will consult GI to see. (5) Elevated transaminase level Current Visit: Yes Status: Acute Assessment and Plan: Due to acute Hep A on chronic Hep C. Management as above. (6) IV drug abuse Current Visit: Yes Status: Acute Assessment and Plan: Cessation strongly advised. Social work consult. (7) Substance abuse Current Visit: Yes Status: Acute Assessment and Plan: Cessation strongly advised (8) Hyponatremia Current Visit: Yes Status: Acute Assessment and Plan: Resolved (9) Hypokalemia Current Visit: Yes Status: Acute Assessment and Plan: Resolved (10) HIV disease Current Visit: Yes Status: Acute Assessment and Plan: HIV Ab/Ag positive. Consider HIV disease. - Will check viral load and CD4 level. - Consult ID for further management DVT Prophylaxis: EPCDs - Time Spent with Patient Total time spent is greater than 50% in coordination of care (as documented) at patient's floor/unit and/or counseling patient: 25 - 35 minutes Plan of Care Discussed with: patient Internal Medicine: Result - Labs CBC & Chem 7: 07/12/18 13:54 07/13/18 04:02 Labs: BMP 07/13/18 04:02 Sodium 136 Potassium 4.0 Chloride 104 Carbon Dioxide 27 BUN 5 L Creatinine 0.60 Glucose 100 Calcium 8.3 L Liver Function 07/13/18 Range/Units 04:02 Total Bilirubin 5.5 H (0.3-1.0) mg/dL AST 376 H (13-39) Units/L ALT > 500 H (7-52) Units/L Alkaline Phosphatase 190 H (34-104) Units/L Albumin 2.8 L (3.5-5.7) g/dL - ABG Interpretation ABG results: PT/INR, D-dimer PT 12.9 Seconds (9.4-12.1) H 07/12/18 13:54 Consult Discharge Plan - Plan Referrals: NONE,PCP [Primary Care Provider] - (2) Cholelithiasis and cholecystitis without obstruction Qualifiers: Qualified Code(s): K80.10 - Calculus of gallbladder with chronic cholecystitis without obstruction (3) Hepatitis C Qualifiers: Viral hepatitis chronicity: unspecified Hepatic coma status: without hepatic coma Qualified Code(s): B19.20 - Unspecified viral hepatitis C without hepatic coma
--- NOTE | 2018-07-13 13:45 | Infectious Disease Consult ---
Date of Encounter: 07/13/18 Time of Encounter: 13:40 Assessment and Plan (1) Cholelithiases Status: Acute Assessment and plan: Ultrasound showing cholelithiasis and some thickened bladder but really no obvious cholecystitis. Clinically it does not appear like cholecystitis but keep in mind the patient also has hepatitis A and acute hepatitis surface really hard to distinguish I will probably treat as cholecystitis with a combination of Rocephin and Flagyl IV while here and on discharge will probably due to combination of Cipro and Flagyl by mouth Qualifiers: Cholelithiasis location: gallbladder Cholecystitis presence: with cholecystitis Cholecystitis acuity: acute Biliary obstruction: without biliary obstruction Qualified Code(s): K80.00 - Calculus of gallbladder with acute cholecystitis without obstruction (2) HIV disease Status: Acute Assessment and plan: No history of HIV before Acutely diagnosed Patient does not have any acute viral syndrome No rash, no oral thrush, no diarrhea, no signs of opportunistic infection We will follow-up as an outpatient No treatment necessary at this time Patient to be scheduled with me in clinic (3) Acute hepatitis A Status: Acute Assessment and plan: stable (4) Hepatitis C Status: Acute Qualifiers: Viral hepatitis chronicity: unspecified Hepatic coma status: without hepatic coma Qualified Code(s): B19.20 - Unspecified viral hepatitis C without hepatic coma (5) Hyperbilirubinemia Status: Acute (6) IV drug abuse Status: Acute Infectious Disease HPI - Data of Consult Patient: new to practice Consult date: 07/13/18 Requesting Physician: Marco Antonio Calderon MD Primary Care Provider: PCP NONE - Consult Narrative Reason for consult: Diagnosis HIV History of present illness: Ms. Choudhury is a 33 year old female Patient is a 32-year-old woman who presented to [facility] on 07/12/2018 with abdominal pain and jaundice. We are consulted 07/13/2018 for newly diagnosed HIV. Patient is a 33-year-old woman with history of IV drugs, tobacco abuse and oral narcotic abuse and IV meth presented to [facility] on July 12 with abdominal pain and jaundice. Apparently the symptoms started 3 days prior to admission. She also was febrile with a MAXIMUM TEMPERATURE of 102 Fahrenheit. Patient also was complaining some epigastric pain. Patient was having some pain in the epigastric area that radiated to the back between her scapulas. Since admission, patient has been afebrile, tachycardic but no tachypnea. Patient was hemodynamically stable. Presenting labs revealed a WBC of 6.5 thousand with 50% neutrophils 39% lymphocytes and no bands. CMP revealed normal kidney function was to be on of 7 creatinine of 0.62. Bilirubin was elevated at 5.3 with direct bilirubin of 3.7 indirect of 1.6. AST was 64 ALT was over 500 and alkaline phosphatase of 225. a urinalysis was obtained and was nonrevealing. Serology on the patient revealed hepatitis A IgM antibody reactive, hepatitis B surface antigen nonreactive hepatitis C active and HIV came back positive. Ultrasound of the abdomen revealed cholelithiasis with gallbladder wall thickening is equivocal for acute cholecystitis. Enlarged peripancreatic lymph node measuring 2.21 cm may be reactive. On further questioning patient appears tired laying in bed really not much eye contact. She was aware of hepatitis and HIV diagnosis yet she seems in different. She had no questions. She did not care to know any further information. I saw the patient in the presence of Mu MASON. CC: Marco Antonio Calderon MD Past Med Surg Social Fam HX - Past Medical History Medical history: no medical history Psychiatric history: no psych history - Past Surgical History Additional surgical history: D&C - Social History Smoking Status: Current every day smoker Packs per day: 0.5 Smokeless Tobacco Status: No Alcohol use: none Drug use: methamphetamine, IV Drug Use - Family History Father Living Status: Still Living Hx Family Cardiac Disorders: Yes Hx Family Respiratory Disorders: No Hx Family Cancer: No Hx Family GI Disorders: No Hx Family Medical Disorders: Yes Infectious Disease-CN:Meds No Known Home Drugs 07/12/18 [History] 3 Allergy/AdvReac Type Severity Reaction Status Date / Time No Known Allergies Allergy Verified 07/12/18 15:50 Review of systems: 10 point review of systems done, negative other for what is mentioned in the history of present illness Exam - Constitutional Vitals: Temp Pulse Resp BP Pulse Ox 98.5 F 84 17 110/73 96 07/13/18 07:08 07/13/18 11:17 07/13/18 11:17 07/13/18 11:17 07/13/18 11:17 General appearance: cooperative, disheveled, no acute distress, no febrile - Head Head exam: Present: atraumatic, normocephalic - Eye Eye exam: Present: EOMI, PERRL Additional comments: Sclera mildly icteric. No conjunctival hemorrhage. - ENT ENT exam: Present: mucous membranes dry Additional comments: No oral lesions. - Neck Neck exam: Present: full ROM, normal inspection - Respiratory Respiratory exam: Present: CTAB. Absent: wheezes - Cardiovascular Cardiovascular exam: Present: RRR, +S1, +S2. Absent: diastolic murmur, systolic murmur - GI/Abdominal GI/Abdominal exam: Present: normal bowel sounds, tenderness Additional comments: Epigastric tenderness with positive Torres's sign and guarding - Extremities Exam Extremities exam: Present: full ROM, normal inspection - Back Exam Back exam: Absent: CVA tenderness (L), CVA tenderness (R), vertebral tenderness - Neurological Exam Neurological exam: Present: alert, oriented X3 - Psychiatric Psychiatric exam: Present: depressed, flat affect - Skin Skin exam: Present: abrasion, normal color Infectious Disease CN: Results - Labs CBC & Chem 7: 07/12/18 13:54 07/13/18 04:02 Serology: Serology 07/12/18 Range/Units 20:16 HIV Ag/Ab Combo Qual Reactive H (Nonreactive) Consult Discharge Plan - Plan Referrals: NONE,PCP [Primary Care Provider] -
[2018-07-13] MEDS: cefTRIAXone 2,000 MG in Water for inj. (sterile) 20 ML 20 ML IVP SCH (16:55)
[2018-07-13] MEDS: metroNIDAZOLE 500 MG TABLET PO SCH ×2 (16:55→20:44)
[2018-07-14 05:33] LABS: Basophils % 0.6 %; Eosinophils % 0.2 %; Hematocrit 39.6 % (35.3-44.9); Immature Granulocytes % 1.6 % (0-4); Lymphocytes # 1.8 K/mcL (0.6-4.6); Lymphocytes % 37.1 %; Mean Corpuscular HGB Conc 33.6 g/dL (31.6-35.5); Mean Corpuscular Hemoglobin 28.4 pg (28.0-33.3); Mean Corpuscular Volume 84.6 fL (83.0-100.0); Mean Platelet Volume 11.1 fL (9.4-12.4); Monocytes # 0.5 K/mcL (0.0-1.3); Monocytes % 10.4 %; Neutrophils # 2.5 K/mcL (1.6-8.9); Platelet Count 222 K/mcL (140-400); Red Blood Count 4.68 M/mcL (3.82-4.97); Red Cell Distribution Width 16.7 % (11.5-14.5); Segmented Neutrophils % 50.1 %
[2018-07-14 05:39] LABS: Hemoglobin 13.3 g/dL (11.5-15.4)
[2018-07-14 05:40] LABS: INR 1.2; Prothrombin Time 13.5 Seconds (9.4-12.1)
[2018-07-14 05:50] LABS: Alanine Aminotransferase > 500 Units/L (7-52); Albumin 2.7 g/dL (3.5-5.7); Albumin/Globulin Ratio 0.9 (1.1-2.2); Alkaline Phosphatase 212 Units/L (34-104); Aspartate Amino Transferase 211 Units/L (13-39); Bilirubin,Direct 3.8 mg/dL (0.0-0.2); Bilirubin,Indirect 1.6 mg/dL (0.0-1.2); Bilirubin,Total 5.4 mg/dL (0.3-1.0); Globulin 3.1 g/dL (2.4-3.5); Total Protein 5.8 g/dL (6.4-8.9)
[2018-07-14 05:55] LABS: Alanine Aminotransferase > 500 Units/L (7-52); Albumin 2.7 g/dL (3.5-5.7); Albumin/Globulin Ratio 0.9 (1.1-2.2); Alkaline Phosphatase 215 Units/L (34-104); Aspartate Amino Transferase 213 Units/L (13-39); BUN/Creatinine Ratio 9 (6-26); Bilirubin,Total 5.4 mg/dL (0.3-1.0); Blood Urea Nitrogen 4 mg/dL (6-20); Calcium 8.3 mg/dL (8.6-10.3); Carbon Dioxide 26 mEq/L (23-29); Chloride 105 mEq/L (98-107); Globulin 3.1 g/dL (2.4-3.5); Glucose 123 mg/dL (70-105); Osmolality,Calculated 280 (280-300); Potassium 3.6 mEq/L (3.5-5.1); Sodium 136 mEq/L (136-145); Total Protein 5.8 g/dL (6.4-8.9); eGFR For Non-African Americans > 60 (> 60)
[2018-07-14] MEDS: metroNIDAZOLE 500 MG TABLET PO SCH ×3 (08:30→19:06)
[2018-07-14] MEDS: Nicotine 14 MG PATCH.TD24 TD SCH (08:30)
--- NOTE | 2018-07-14 13:32 | Internal Med Progress Note ---
Hospitalist Progress Note - Encounter Date of Encounter: 07/14/18 Time of Encounter: 09:00 - Subjective Interval History: Pt still has RUQ pain on palpation. Denies nausea. Improved appetite. No overnight fever. - Exam Vitals: Temp Pulse Resp BP Pulse Ox 98.2 F 98 19 117/77 97 07/14/18 07:17 07/14/18 07:17 07/14/18 07:17 07/14/18 07:17 07/14/18 07:17 Exam: AAO x 3, in NAD HEENT: NC/AT, PERRL Neck: Supple, no LAD Lungs: CTA B/L Heart: S1S2, RRR Abd: Soft, RUQ tenderness, BS normal Ext: No edema Neuro: No focal deficit. . - Assessment and Plan (1) Acute hepatitis A Current Visit: Yes Status: Acute Assessment and Plan: Appreciate GI consult. - Cont supportive treatment. - AST trend down, AST still > 500 (2) Cholelithiasis and cholecystitis without obstruction Current Visit: Yes Status: Acute Assessment and Plan: Cannot totally r/o cholecystitis per ID, iv rocephin and flagyl started. Pt need surgical follow after discharge for her cholelithiasis. (3) Hepatitis C Current Visit: Yes Status: Acute Assessment and Plan: New diagnosis to pt, pt was unaware of this. Partner has hx of Hep C and she does admit to hx of IV drug use. Other STD work up result pending. (4) Hyperbilirubinemia Current Visit: Yes Status: Acute Assessment and Plan: Likely due to acute Hep A. Will monitor CMP daily. GI is on case. (5) Elevated transaminase level Current Visit: Yes Status: Acute Assessment and Plan: Due to acute Hep A on chronic Hep C. Management as above. (6) IV drug abuse Current Visit: Yes Status: Acute Assessment and Plan: Cessation strongly advised. Social work consult. (7) Substance abuse Current Visit: Yes Status: Acute Assessment and Plan: Cessation strongly advised (8) Hyponatremia Current Visit: Yes Status: Acute Assessment and Plan: Resolved (9) Hypokalemia Current Visit: Yes Status: Acute Assessment and Plan: Resolved (10) HIV disease Current Visit: Yes Status: Acute Assessment and Plan: HIV Ab/Ag positive. Consider HIV disease. - Viral load and CD4 level pending - ID consult appreciated, no treatment at this point, f/u with ID as outpatient. DVT Prophylaxis: EPCDs - Time Spent with Patient Total time spent is greater than 50% in coordination of care (as documented) at patient's floor/unit and/or counseling patient: 25 - 35 minutes Plan of Care Discussed with: patient Internal Medicine: Result - Labs CBC & Chem 7: 07/14/18 04:46 07/14/18 04:46 Labs: Short CBC 07/14/18 Range/Units 04:46 WBC 4.9 (4.3-11.1) K/mcL Hgb 13.3 D (11.5-15.4) g/dL Hct 39.6 (35.3-44.9) % Plt Count 222 (140-400) K/mcL Neutrophils # 2.5 (1.6-8.9) K/mcL BMP 07/14/18 04:46 Sodium 136 Potassium 3.6 Chloride 105 Carbon Dioxide 26 BUN 4 L Creatinine 0.47 L Glucose 123 H Calcium 8.3 L Liver Function 07/14/18 07/14/18 Range/Units 04:46 04:46 Total Bilirubin 5.4 H 5.4 H (0.3-1.0) mg/dL Direct Bilirubin 3.8 H (0.0-0.2) mg/dL AST 213 H 211 H (13-39) Units/L ALT > 500 H > 500 H (7-52) Units/L Alkaline Phosphatase 215 H 212 H (34-104) Units/L Albumin 2.7 L 2.7 L (3.5-5.7) g/dL - ABG Interpretation ABG results: PT/INR, D-dimer PT 13.5 Seconds (9.4-12.1) H 07/14/18 04:46 Consult Discharge Plan - Plan Referrals: NONE,PCP [Primary Care Provider] - (2) Cholelithiasis and cholecystitis without obstruction Qualifiers: Qualified Code(s): K80.10 - Calculus of gallbladder with chronic cholecystitis without obstruction (3) Hepatitis C Qualifiers: Viral hepatitis chronicity: unspecified Hepatic coma status: without hepatic coma Qualified Code(s): B19.20 - Unspecified viral hepatitis C without hepatic coma
[2018-07-14] MEDS: cefTRIAXone 2,000 MG in Water for inj. (sterile) 20 ML 20 ML IVP SCH ×2 (16:30→19:07)
--- NOTE | 2018-07-14 17:07 | Infectious Disease Progress No ---
Date of Encounter: 07/14/18 Time of Encounter: 10:35 - Assessment and Plan (1) Acute hepatitis A Current Visit: Yes Status: Acute Likely contributing to the patient's elevated LFTs. Continue to trend LFTs. Continue supportive care. GI consulted and following. No further recommendations from the ID team. We will sign off. Please re- consult if needed. (2) Cholelithiases Current Visit: Yes Status: Acute Ultrasound showing cholelithiasis and some thickened bladder but really no obvious cholecystitis. Clinically, it does not appear like cholecystitis, but keep in mind the patient also has hepatitis A. Recommend continue Rocephin and flagyl while here and switching to PO Cipro and flagyl when ready for discharge to complete 14 day course of treatment. Recommend the patient follow up with general surgery as an outpatient for possible gallbladder removal. Qualifiers: Cholelithiasis location: gallbladder Cholecystitis presence: with cholecystitis Cholecystitis acuity: acute Biliary obstruction: without biliary obstruction Qualified Code(s): K80.00 - Calculus of gallbladder with acute cholecystitis without obstruction (3) Hepatitis C Current Visit: Yes Status: Acute Likely secondary to IVDU. Outpatient referral to GI if interested in treatment. Qualifiers: Viral hepatitis chronicity: unspecified Hepatic coma status: without hepatic coma Qualified Code(s): B19.20 - Unspecified viral hepatitis C without hepatic coma (4) Hyperbilirubinemia Current Visit: Yes Status: Acute Likely secondary to Hepatitis A. Continue to trend. (5) Elevated transaminase level Current Visit: Yes Status: Acute Likely secondary to acute hepatitis A. Continue to trend. (6) IV drug abuse Current Visit: Yes Status: Acute HIV positive. Hepatitis C positive. Hep B antibody in the grayzone. Repeat in 1 week. (7) HIV disease Current Visit: Yes Status: Acute - Subjective Interval history: Patient seen and examined. No acute events noted overnight. Patient states overall she feels better today. Denies fevers, chills, or rigors. Denies chest pain, shortness of breath, or cough. Denies nausea, vomiting, or diarrhea. Denies abdominal pain or urinary complaints. Denies oral thrush or new skin lesions. States her appetite is better. Infect Dis PN-Objective Data - Labs CBC & Chem 7: 07/14/18 04:46 07/14/18 04:46 Labs: Laboratory Results - last 24 hr 07/14/18 07/14/18 07/14/18 04:46 04:46 04:46 WBC 4.9 RBC 4.68 Hgb 13.3 D Hct 39.6 MCV 84.6 MCH 28.4 MCHC 33.6 RDW 16.7 H Plt Count 222 MPV 11.1 Immature Gran % 1.6 Seg Neutrophils % 50.1 Lymphocytes % 37.1 Monocytes % 10.4 Eosinophils % 0.2 Basophils % 0.6 Neutrophils # 2.5 Lymphocytes # 1.8 Monocytes # 0.5 Eosinophils # 0.0 Basophils # 0.0 PT 13.5 H INR 1.2 Sodium 136 Potassium 3.6 Chloride 105 Carbon Dioxide 26 BUN 4 L Creatinine 0.47 L Est GFR ( Amer) > 60 Est GFR (Non-Af Amer) > 60 BUN/Creatinine Ratio 9 Glucose 123 H Calculated Osmolality 280 Calcium 8.3 L Total Bilirubin 5.4 H Direct Bilirubin Indirect Bilirubin AST 213 H ALT > 500 H Alkaline Phosphatase 215 H Serum Total Protein 5.8 L Albumin 2.7 L Globulin 3.1 Albumin/Globulin Ratio 0.9 L Beta HCG, Quant 07/14/18 07/14/18 04:46 04:46 WBC RBC Hgb Hct MCV MCH MCHC RDW Plt Count MPV Immature Gran % Seg Neutrophils % Lymphocytes % Monocytes % Eosinophils % Basophils % Neutrophils # Lymphocytes # Monocytes # Eosinophils # Basophils # PT INR Sodium Potassium Chloride Carbon Dioxide BUN Creatinine Est GFR ( Amer) Est GFR (Non-Af Amer) BUN/Creatinine Ratio Glucose Calculated Osmolality Calcium Total Bilirubin 5.4 H Direct Bilirubin 3.8 H Indirect Bilirubin 1.6 H AST 211 H ALT > 500 H Alkaline Phosphatase 212 H Serum Total Protein 5.8 L Albumin 2.7 L Globulin 3.1 Albumin/Globulin Ratio 0.9 L Beta HCG, Quant < 1 Cultures: Serology 07/12/18 Range/Units 20:16 HIV Ag/Ab Combo Qual Reactive H (Nonreactive) Exam - Constitutional Vitals: Temp Pulse Resp BP Pulse Ox 98.6 F 93 20 115/71 97 07/14/18 15:26 07/14/18 15:26 07/14/18 15:26 07/14/18 15:26 07/14/18 15:26 General appearance: average body habitus, cooperative, no acute distress - Head Head exam: Present: atraumatic, normal inspection, normocephalic - Eye Eye exam: Present: EOMI, normal appearance, PERRL Pupils: Present: normal accommodation - ENT ENT exam: Present: mucous membranes moist - Neck Neck exam: Present: normal inspection - Respiratory Respiratory exam: Present: CTAB. Absent: rales, respiratory distress, rhonchi, wheezes - Cardiovascular Cardiovascular exam: Present: RRR, +S1, +S2 - GI/Abdominal GI/Abdominal exam: Present: normal bowel sounds, soft, tenderness (epigastric, RUQ). Absent: distended - Extremities Exam Extremities exam: Present: normal inspection. Absent: joint swelling, pedal edema, tenderness - Neurological Exam Neurological exam: Present: alert, oriented X3, no focal deficits - Psychiatric Psychiatric exam: Present: normal affect, normal mood - Skin Skin exam: Present: dry, intact, normal color, warm Consult Discharge Plan - Plan Referrals: NONE,PCP [Primary Care Provider] - - Attending Attestation I examined this patient and my medical decision-making was reviewed with the Resident Physician. I agree with the documented findings, disposition and treatment plan as described except to the extent set forth below.
[2018-07-15 01:00] LABS: HIV-1 Ab Supplemental NEGATIVE (Negative); HIV-2 Ab Supplemental NEGATIVE (Negative)
[2018-07-15 03:39] LABS: Basophils % 0.6 %; Eosinophils % 0.5 %; Hematocrit 39.4 % (35.3-44.9); Hemoglobin 13.2 g/dL (11.5-15.4); Immature Granulocytes % 1.1 % (0-4); Lymphocytes # 2.1 K/mcL (0.6-4.6); Lymphocytes % 34.4 %; Mean Corpuscular HGB Conc 33.5 g/dL (31.6-35.5); Mean Corpuscular Hemoglobin 28.5 pg (28.0-33.3); Mean Corpuscular Volume 85.1 fL (83.0-100.0); Mean Platelet Volume 10.8 fL (9.4-12.4); Monocytes # 0.7 K/mcL (0.0-1.3); Monocytes % 10.6 %; Neutrophils # 3.3 K/mcL (1.6-8.9); Platelet Count 215 K/mcL (140-400); Red Blood Count 4.63 M/mcL (3.82-4.97); Segmented Neutrophils % 52.8 %
[2018-07-15 03:44] LABS: INR 1.2; Prothrombin Time 13.6 Seconds (9.4-12.1)
[2018-07-15 03:59] LABS: Albumin 2.9 g/dL (3.5-5.7); Albumin/Globulin Ratio 0.9 (1.1-2.2); Bilirubin,Direct 2.9 mg/dL (0.0-0.2); Bilirubin,Indirect 1.6 mg/dL (0.0-1.2); Bilirubin,Total 4.5 mg/dL (0.3-1.0); Globulin 3.2 g/dL (2.4-3.5); Total Protein 6.1 g/dL (6.4-8.9)
[2018-07-15 04:00] LABS: Alanine Aminotransferase 460 Units/L (7-52); Albumin 2.9 g/dL (3.5-5.7); Albumin/Globulin Ratio 0.9 (1.1-2.2); Alkaline Phosphatase 242 Units/L (34-104); Aspartate Amino Transferase 154 Units/L (13-39); BUN/Creatinine Ratio 10 (6-26); Bilirubin,Total 4.4 mg/dL (0.3-1.0); Blood Urea Nitrogen 5 mg/dL (6-20); Calcium 8.7 mg/dL (8.6-10.3); Carbon Dioxide 28 mEq/L (23-29); Chloride 104 mEq/L (98-107); Globulin 3.2 g/dL (2.4-3.5); Glucose 125 mg/dL (70-105); Osmolality,Calculated 283 (280-300); Potassium 3.7 mEq/L (3.5-5.1); Sodium 137 mEq/L (136-145); Total Protein 6.1 g/dL (6.4-8.9); eGFR For Non-African Americans > 60 (> 60)
[2018-07-15 04:10] LABS: Anisocytosis 1+ (Not Present); Platelet Estimate Normal (Normal); Reactive Lymphocytes Present (Not Present)
[2018-07-15 07:30] LABS: AFP Tumor Marker Non-Pregnant 8 ng/mL (0-9)
[2018-07-15 07:45] VITALS: BP 103/66
[2018-07-15] MEDS: Nicotine 14 MG PATCH.TD24 TD SCH (09:28)
[2018-07-15] MEDS: metroNIDAZOLE 500 MG TABLET PO SCH (09:29)
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
[2018-07-15 12:45] LABS: CD3 Percent 82 % (62-87); CD8 Percent 39 % (15-46)
[2018-07-15 14:37] LABS: HIV-1 Viral Load Interp NOT DETECTED (Not Detected)
[2018-07-15 14:39] LABS: ANA IgG by ELISA NONE DETECTED (None Detected); F-Actin (sm muscle) Ab IgG 8 Units (0-19); Myeloperoxidase Ab 0 AU/mL (0-19); Serine Protease-3 Antibody 2 AU/mL (0-19)
[2018-07-19 08:03] LABS: HIV-1 Genotype by Sequencing INDETERMINATE
[2018-07-19 08:04] LABS: HCV Quant Interpretation DETECTED (Not Detected); HCV Quant Log <1.00 log IU/mL
== END 2018-07-15 14:41 | disposition home or self-care (01) ==
LOC: 2NENU 13:39 → EMEROOARM 13:39 → 2NENU 18:43
PROVIDERS: ADMIT Internal Medicine; ATTEND Internal Medicine

== ENCOUNTER 2020-10-26 19:22 | Inpatient (IN) ==
[2020-10-26 20:14] LABS: Basophils # 0.1 K/mcL (0.0-0.2); Basophils % 0.4 %; Eosinophils # 0.1 K/mcL (0.0-0.6); Eosinophils % 0.3 %; Hematocrit 34.6 % (35.3-44.9); Hemoglobin 11.1 g/dL (11.5-15.4); Immature Granulocytes % 1.7 % (0-4); Lymphocytes # 2.2 K/mcL (0.6-4.6); Lymphocytes % 9.1 %; Mean Corpuscular HGB Conc 32.1 g/dL (31.6-35.5); Mean Corpuscular Hemoglobin 26.9 pg (28.0-33.3); Mean Corpuscular Volume 83.8 fL (83.0-100.0); Mean Platelet Volume 8.8 fL (9.4-12.4); Monocytes # 1.8 K/mcL (0.0-1.3); Monocytes % 7.5 %; Neutrophils # 19.8 K/mcL (1.6-8.9); Platelet Count 426 K/mcL (140-400); Red Blood Count 4.13 M/mcL (3.82-4.97); Red Cell Distribution Width 14.7 % (11.5-14.5); White Blood Count 24.5 K/mcL (4.3-11.1)
[2020-10-26 20:21] LABS: Activated Partial Thrombo Time 29.2 Seconds (26.0-36.0)
[2020-10-26 20:24] LABS: INR 1.3; Prothrombin Time 15.3 Seconds (9.4-12.1)
[2020-10-26] MEDS ORDERED: Isovue-370 500 ML BOTTLE IVP ONE (20:28)
[2020-10-26 20:36] LABS: Alanine Aminotransferase 41 Units/L (7-52); Albumin 2.8 g/dL (3.5-5.7); Albumin/Globulin Ratio 0.7 (1.1-2.2); Alkaline Phosphatase 88 Units/L (34-104); Aspartate Amino Transferase 17 Units/L (13-39); BUN/Creatinine Ratio 12 (6-26); Bilirubin,Direct 0.1 mg/dL (0.0-0.2); Bilirubin,Indirect 0.2 mg/dL (0.0-1.0); Bilirubin,Total 0.3 mg/dL (0.3-1.0); Blood Urea Nitrogen 7 mg/dL (6-20); C-Reactive Protein 273 mg/L (Less than 10); Calcium 8.4 mg/dL (8.6-10.3); Carbon Dioxide 28 mEq/L (23-29); Chloride 103 mEq/L (98-107); Globulin 3.8 g/dL (2.4-3.5); Glucose 131 mg/dL (70-105); Lactate Dehydrogenase 93 Units/L (140-271); Magnesium 1.5 mg/dL (1.6-2.6); Osmolality,Calculated 286 (280-300); Phosphorous 2.5 mg/dL (2.7-4.5); Potassium 3.1 mEq/L (3.5-5.1); Sodium 138 mEq/L (136-145); Total Protein 6.6 g/dL (6.4-8.9); eGFR For African Americans > 60 (> 60); eGFR For Non-African Americans > 60 (> 60)
[2020-10-26 20:54] LABS: Ferritin 133 ng/mL (10-120)
[2020-10-26 21:33] LABS: Troponin I < 0.03 ng/mL (< 0.04)
[2020-10-26] MEDS ORDERED: 0.9 % Sodium Chloride 1,000 ML IVC SCH (22:00)
[2020-10-26] MEDS ORDERED: cefTRIAXone 1,000 MG in 0.9 % Sodium Chloride Mini Bag 100 ML IVPB ONE (22:10)
[2020-10-26] MEDS ORDERED: Azithromycin 500 MG in 0.9 % Sodium Chloride 250 ML IVPB ONE (22:10)
[2020-10-26] MEDS ORDERED: Piperacillin/Tazobactam 3.375 GM in 0.9 % Sodium Chloride Mini Bag 100 ML IVPB ONE (22:23)
[2020-10-26 23:43] LABS: Adenovirus Not Detected (Not Detect); Coronavirus 229E Not Detected (Not Detect); Coronavirus HKU1 Not Detected (Not Detect); Coronavirus NL63 Not Detected (Not Detect)
[2020-10-26 23:44] LABS: Bordetella Pertussis Not Detected (Not Detect); Chlamydophila pneumoniae Not Detected (Not Detect); Coronavirus OC43 Not Detected (Not Detect); Human Metapneumovirus Not Detected (Not Detect); Human Rhinovirus/Enterovirus Not Detected (Not Detect); Influenza A Subtype 2009 H1 Not Detected (Not Detect); Influenza B Not Detected (Not Detect); Mycoplasma pneumoniae Not Detected (Not Detect); Parainfluenza Virus 1 Not Detected (Not Detect); Parainfluenza Virus 2 Not Detected (Not Detect); Parainfluenza Virus 3 Not Detected (Not Detect); Parainfluenza Virus 4 Not Detected (Not Detect); Respiratory Syncytial Virus Not Detected (Not Detect); SARS-CoV-2 Not Detected (Not Detect)
[2020-10-26] MEDS ORDERED: Potassium Phosphate 44 MEQ in 0.9 % Sodium Chloride 250 ML IVPB ONE (23:57)
[2020-10-27] MEDS ORDERED: Ondansetron 4 MG/2 ML VIAL IVP PRN
[2020-10-27] MEDS ORDERED: Naloxone 0.4 MG/ML INJ IVP PRN
[2020-10-27] MEDS ORDERED: *HR* OxyCODONE Oral Soln 5 MG/5 ML UD.LIQ PO PRN (00:26)
[2020-10-27] MEDS ORDERED: Acetaminophen IV 1,000 MG/100 ML BAG IVPB ONE (00:26)
[2020-10-27] MEDS ORDERED: 0.9 % Sodium Chloride 1,000 ML IVC ONE (00:26)
[2020-10-27] MEDS: Acetaminophen 325 MG TABLET PO PRN ×4 (01:11→23:08)
[2020-10-27 02:54] LABS: Basophils # 0.1 K/mcL (0.0-0.2); Basophils % 0.4 %; Eosinophils # 0.1 K/mcL (0.0-0.6); Eosinophils % 0.6 %; Hematocrit 32.9 % (35.3-44.9); Hemoglobin 10.3 g/dL (11.5-15.4); Lymphocytes # 3.1 K/mcL (0.6-4.6); Lymphocytes % 14.6 %; Mean Corpuscular HGB Conc 31.3 g/dL (31.6-35.5); Mean Corpuscular Hemoglobin 27.5 pg (28.0-33.3); Mean Corpuscular Volume 87.7 fL (83.0-100.0); Mean Platelet Volume 9.5 fL (9.4-12.4); Monocytes # 1.9 K/mcL (0.0-1.3); Monocytes % 9.1 %; Neutrophils # 15.5 K/mcL (1.6-8.9); Platelet Count 409 K/mcL (140-400); Red Blood Count 3.75 M/mcL (3.82-4.97); Red Cell Distribution Width 14.9 % (11.5-14.5); Segmented Neutrophils % 73.3 %; White Blood Count 21.2 K/mcL (4.3-11.1)
[2020-10-27 03:06] LABS: BUN/Creatinine Ratio 15 (6-26); Blood Urea Nitrogen 8 mg/dL (6-20); Calcium 7.7 mg/dL (8.6-10.3); Carbon Dioxide 26 mEq/L (23-29); Chloride 105 mEq/L (98-107); Glucose 104 mg/dL (70-105); Osmolality,Calculated 287 (280-300); Potassium 3.4 mEq/L (3.5-5.1); Sodium 139 mEq/L (136-145); eGFR For African Americans > 60 (> 60); eGFR For Non-African Americans > 60 (> 60)
[2020-10-27] MEDS: *HR* Enoxaparin 40 MG/0.4 ML SYRINGE SQ SCH (04:56)
[2020-10-27] MEDS: Piperacillin/Tazobactam 3.375 GM in 0.9 % Sodium Chloride Mini Bag 100 ML IVPB SCH ×2 (08:03→15:37)
[2020-10-27 14:43] LABS: Bilirubin,Urine Negative (Negative); Blood,Urine Negative (Negative); Clarity,Urine Clear (Clear); Color,Urine Light-Yellow (Yellow); Glucose,Urine (UA) Normal (Normal); Ketones,Urine Negative (Negative); Leukocyte Esterase,Urine Negative (Negative); Nitrite,Urine Negative (Negative); Protein,Urine Negative (Neg-Trace); Specific Gravity,Urine 1.012 (1.010-1.025); Urobilinogen,Urine Normal (Normal)
[2020-10-27 14:54] LABS: Amphetamine Screen,Urine Negative ng/mL (Cutoff=1000); Barbiturate Screen,Urine Negative ng/mL (Cutoff=200); Benzodiazepines Screen,Urine Negative ng/mL (Cutoff=200); Cannabinoid Screen,Urine Negative ng/mL (Cutoff = 50); Cocaine Screen,Urine Negative ng/mL (Cutoff= 300); Opiate Screen,Urine Negative ng/mL (Cutoff=300); Phencyclidine Screen,Urine Negative ng/mL (Cutoff=25)
[2020-10-27] MEDS: 0.9 % Sodium Chloride w KCl 20 MEQ/1,000 ML MLS IVC SCH (15:38)
[2020-10-28] MEDS: Piperacillin/Tazobactam 3.375 GM in 0.9 % Sodium Chloride Mini Bag 100 ML IVPB SCH ×2 (00:23→09:29)
[2020-10-28] MEDS: 0.9 % Sodium Chloride w KCl 20 MEQ/1,000 ML MLS IVC SCH (04:55)
[2020-10-28 04:56] LABS: Basophils # 0.1 K/mcL (0.0-0.2); Basophils % 0.8 %; Eosinophils # 0.2 K/mcL (0.0-0.6); Eosinophils % 0.9 %; Hematocrit 31.6 % (35.3-44.9); Immature Granulocytes % 4.4 % (0-4); Lymphocytes # 3.4 K/mcL (0.6-4.6); Lymphocytes % 19.3 %; Mean Corpuscular HGB Conc 31.6 g/dL (31.6-35.5); Mean Corpuscular Hemoglobin 26.8 pg (28.0-33.3); Mean Corpuscular Volume 84.7 fL (83.0-100.0); Monocytes # 1.6 K/mcL (0.0-1.3); Neutrophils # 11.4 K/mcL (1.6-8.9); Nucleated Red Blood Cells 0.1 /100 WBC (0); Platelet Count 418 K/mcL (140-400); Red Blood Count 3.73 M/mcL (3.82-4.97); Red Cell Distribution Width 15.2 % (11.5-14.5); Segmented Neutrophils % 65.6 %; White Blood Count 17.4 K/mcL (4.3-11.1)
[2020-10-28] MEDS: *HR* Enoxaparin 40 MG/0.4 ML SYRINGE SQ SCH (04:56)
[2020-10-28 05:12] LABS: BUN/Creatinine Ratio 10 (6-26); Blood Urea Nitrogen 6 mg/dL (6-20); Calcium 7.9 mg/dL (8.6-10.3); Carbon Dioxide 25 mEq/L (23-29); Chloride 105 mEq/L (98-107); Glucose 122 mg/dL (70-105); Osmolality,Calculated 285 (280-300); Potassium 3.6 mEq/L (3.5-5.1); Sodium 138 mEq/L (136-145); eGFR For African Americans > 60 (> 60); eGFR For Non-African Americans > 60 (> 60)
[2020-10-28] MEDS: Acetaminophen 325 MG TABLET PO PRN (09:29)
[2020-10-28 11:22] VITALS: BP 92/58
[2020-10-28] MEDS ORDERED: Vancomycin 1,500 MG/265 ML IV.SOLN IVPB SCH (12:00)
[2020-10-28] MEDS ORDERED: Vancomycin 1,250 MG/262.5 ML IV.SOLN IVPB SCH (12:00)
== END 2020-10-28 15:15 | disposition home or self-care (01) | DRG 871 ==
LOC: EMEROOARM 19:22 → 2ANU 23:47 → SUATTDRO 23:47 → 2ANU 10-27 00:48
PROVIDERS: ADMIT Family Medicine; ATTEND Internal Medicine